=== PATIENT | female | born 1960 | race Caucasian/White ===

== ENCOUNTER 2024-10-01 06:00 | Day surgery (SDC) | payer OTHER ==
[~2024-10-01 06:00] MED LIST: ATARAX50 MG PO; COZAAR100 MG; PRISTIQ25 MG PO; RESTORIL30 M1 PO; SEROQUEL50 MG; XANAX1 MG PO
[2024-10-01] MEDS ORDERED: CEFAZOLIN SODIUM 1,000 MG VIAL IV ONE (10:30)
[2024-10-01] MEDS ORDERED: TRANEXAMIC ACID 100MG/1ML (1000MG) AMPUL IV ONE (10:30)
[2024-10-01] MEDS ORDERED: BUPIVACAINE HCL/PF 0.25% 50 ML VIAL IJ ONE (10:45)
[2024-10-01] MEDS ORDERED: LIDOCAINE HCL 2%/EPINEPHRINE 20ML VIAL IJ ONE (10:45)
[2024-10-01] MEDS ORDERED: POVIDONE-IODINE 118 ML BOTT TOP ONE (11:30)
[2024-10-01] MEDS ORDERED: MORPHINE SULFATE 4 MG/ML VIAL IV ONE (16:25)
== END 2024-10-01 19:50 | disposition home or self-care (01) ==
LOC: CIR.AMB 06:00
PROVIDERS: ATTEND Specialist
DX: N64.89 Other specified disorders of breast (principal); Z91.013 Allergy to seafood